=== PATIENT | male | born 1960 | race Caucasian/White ===

== ENCOUNTER → 2017-05-09 | Outpatient (CLI) | payer OTHER | LOC: GAIR 09:12 | DX: I21.4 Non-ST elevation (NSTEMI) myocardial infarction (principal); S00.81XA Abrasion of other part of head, initial encounter; I10 Essential (primary) hypertension; E66.9 Obesity, unspecified; R55 Syncope and collapse; R06.02 Shortness of breath; R07.89 Other chest pain; R11.0 Nausea; R51 Headache; X58.XXXA Exposure to other specified factors, initial encounter | CPT/HCPCS: A0422; A0431; A0436 ==